=== PATIENT | female | born 1995 | race Caucasian/White ===

== ENCOUNTER 2016-07-29 11:55 | Emergency (ER) | payer BC ==
[~2016-07-29] VITALS: Ht 177.8 cm; Wt 70.5 kg
[2016-07-29 12:08] VITALS: TEMP 36.9; Ht 177.8 cm; Wt 70.5 kg
--- NOTE | 2016-07-29 13:21 | DIAGNOSTIC IMAGING REPORT ---
LEFT FOOT MIN 3 VIEWS ROUTINE CLINICAL HISTORY: Left foot pain. Proximal 5th metatarsal area. COMPARISON: None. DISCUSSION: The bones and joint spaces appear intact. There is no evidence of fracture, dislocation or bony disease. There is no evidence for soft tissue swelling. IMPRESSION: Negative study. Electronically signed by: Adolfo Edward M.D. 07/29/2016 1:20 PM Dictated Date/Time: 07/29/2016 1:19 PM
[2016-07-29] MEDS ORDERED: HYDR-5688 PO (14:02)
[2016-07-29 14:07] VITALS: BP 128/68; PULSE 69; O2SAT 99
--- NOTE | 2016-07-30 21:11 | EMERGENCY ROOM VISIT NOTE ---
ED Visit Note First contact with patient: 12:14 CHIEF COMPLAINT: Foot pain HISTORY OF PRESENT ILLNESS: This 21-year-old female patient presents to the emergency department complaining of swelling and pain in the left foot at rest and worse with weight bearing. The patient states that she was running yesterday , and started developing pain over the lateral aspect of her left foot. She does not recall a distinct injury or trauma otherwise. She was able to run about 1 mile home without significant worsening of her pain. She rested and iced her foot yesterday, however when she woke today she had significant pain with ambulation. She has a history of fracture to her right foot, but not to this foot. She has not taken anything [id number] for her symptoms. She has been able to walk with a limp. She does not have numbness or paresthesias. No back pain, hip pain, knee pain, or other injury noted. REVIEW OF SYSTEMS: GENERAL: A 6 system review of systems was completed with positives and pertinent negatives in the HPI. ALLERGIES: No known allergies MEDICATIONS: No chronic medications PMH: Otherwise healthy SOCIAL HISTORY: Student who lives locally PHYSICAL EXAM: Vital Signs: Reviewed Nurse's notes, vital signs stable. GENERAL : White female, in no acute distress, but appears in pain, well-developed, well- nourished. MUSCULOSKELATAL: There is no visual deformity of the left foot. There is no erythema and no ecchymosis. There is no warmth. There is tenderness and swelling over the proximal 5th metatarsal of the left foot. There is no tenderness over the lateral or medial malleolus. No tenderness of the tib/fib. The range of motion of the foot is not limited secondary to pain. There is no tenderness over the plantar fascia. The skin is intact and there are no lacerations or puncture wounds. Dorsalis pedis pulse 2+. Capillary refill less than 2 seconds. LEFT FOOT MIN 3 VIEWS ROUTINE CLINICAL HISTORY: Left foot pain. Proximal 5th metatarsal area. COMPARISON: None. DISCUSSION: The bones and joint spaces appear intact. There is no evidence of fracture, dislocation or bony disease. There is no evidence for soft tissue swelling. IMPRESSION: Negative study. EMERGENCY DEPARTMENT COURSE: Physical exam and history were performed. Nursing notes and EMR were reviewed. The patient appears to have pain of her left foot primarily at the proximal left fifth metatarsal. Patient is able to ambulate. X-ray was obtained and read by myself and radiology to show no acute fracture or dislocation. Overall the patient does appear well for discharge home. She will be given a postop shoe and crutches. I discussed conservative measures with the patient, and we'll have her follow with orthopedics with any ongoing or persistent symptoms. She was otherwise invited back to the ER with any new concerns, and was pleased with plan of care. Current/Historical Medications Scheduled PRN Hydrocodone/Acetaminophen 5MG/325MG ([place] 5MG/325MG), 1 TABLET PO Q6 PRN for Pain Allergies Uncoded Allergies: NO KNOWN ALLERGIES (Allergy, Unknown, ., 07/29/16) Vital Signs Date Time Temp Pulse Resp B/P Pulse Ox O2 Delivery O2 Flow Rate FiO2 07/29/16 14:07 69 16 128/68 99 Room Air 07/29/16 12:08 36.9 68 18 119/65 97 Room Air Departure Information Impression Primary Impression: Injury of left foot Dispostion Home / Self-Care Condition GOOD Prescriptions Hydrocodone/Acetaminophen 5MG/325MG ([place] 5MG/325MG) Tab 1 TABLET PO Q6 Y for Pain, #10 TAB For Initial Treatment Prov: Lokesh Dang PA-C 07/29/16 Referrals Rex Berry MD Forms HOME CARE DOCUMENTATION FORM, IMPORTANT VISIT INFORMATION Patient Instructions My [facility] Additional Instructions You were seen and evaluated today on an emergency basis only. This is not a substitute for, or an effort to provide, complete comprehensive medical care. It is not possible to recognize and treat all injuries or illnesses in a single emergency department visit. For this reason it is recommended that you followup with Orthopedics, Dr. Berry's office, in the next 1-2 weeks if you have persistent symptoms. Use your postop shoe and crutches for the next 5 or 6 days. Slowly advance activity as tolerated. For baseline pain relief you may alternate ibuprofen and acetaminophen every 4 hours for pain control. Take 600 mg ibuprofen (Advil) and then 4 hours later take 1000 mg acetaminophen (Tylenol). Do not take more than 3000 mg acetaminophen in a single day. Haw[place] (hydrocodone/acetaminophen) 5/325 mg every 6 hours as needed for worsening breakthrough pain. Do not drink or drive on [place]. This medication will likely make you tired. Do not take [place] and Tylenol at the same time as both contain acetaminophen. Haworth may cause constipation. You may wish to take an [id number] stool softener like Colace if this occurs. You are welcome to return to the emergency department anytime with new, worsening, or concerning symptoms.
== END 2016-07-29 14:19 | disposition home or self-care (01) ==
LOC: C.EDB 11:57 → C.EDD 14:19
DX: S99.922A Unspecified injury of left foot, initial encounter (principal); X58.XXXA Exposure to other specified factors, initial encounter; Y93.02 Activity, running; Y99.8 Other external cause status